=== PATIENT | male | born 2000 | race Two or more races ===

== ENCOUNTER 2023-03-20 10:31 | Emergency (ER) | payer SELFPAY ==
[2023-03-20] MEDS ORDERED: Ibuprofen 800 MG Tab PO STA (11:03)
[2023-03-20] MEDS ORDERED: Acetaminophen 500 MG Tab PO STA (11:03)
[2023-03-20] MEDS ORDERED: Diphtheria,Pertussis(Acell),Tetanus Vaccine 0.5 ML Syringe IM ONE (11:08)
[2023-03-20] MEDS ORDERED: Bacitracin Oint 1 GM U/D Packet TOP STA (12:14)
== END 2023-03-20 12:53 | disposition home or self-care (01) ==
LOC: MW.ED 10:31
DX: S61.411A Laceration without foreign body of right hand, initial encounter (principal); Z23 Encounter for immunization; W26.8XXA Contact with other sharp object(s), not elsewhere classified, initial encounter
CPT/HCPCS: 90471; 90715; 99282; A9270; 99283